=== PATIENT | male | born 1960 ===

== ENCOUNTER 2020-11-28 07:43 | Day surgery (SDC) | payer BC ==
[~2020-11-28 07:43] MED LIST: CALCIUM-MAGNES1 EAC9 PO; MULTIPLE VITAM1 EACH PO; VITAMIN C125 MG PO; [UNRECOGNIZED DRUG - OTHER] PO
== END 2020-11-28 09:55 | disposition home or self-care (01) ==
LOC: ORSCSDS 07:43
PROVIDERS: Internal Medicine Gastroenterology
PROC: 0DBL8ZX Excision of Transverse Colon, Via Natural or Artificial Opening Endoscopic, Diagnostic (ICD-10-PCS; principal; 2020-11-28 09:00)
DX: Z12.11 Encounter for screening for malignant neoplasm of colon (principal); Z80.0 Family history of malignant neoplasm of digestive organs; D12.3 Benign neoplasm of transverse colon; K57.30 Diverticulosis of large intestine without perforation or abscess without bleeding; K64.8 Other hemorrhoids
CPT/HCPCS: 88305; J2704; J7120